=== PATIENT | female | born 1985 | race Caucasian/White ===

== ENCOUNTER 2016-10-19 01:12 | Emergency (ER) | payer OTHER ==
[~2016-10-19] VITALS: Ht 160 cm; Wt 131.8 kg
[2016-10-19 01:14] VITALS: BP 155/95; PULSE 94; RESP 18; O2SAT 100
--- NOTE | 2016-10-19 01:27 | ED.REPORT ---
HPI- Female Date of Service Oct 19, 2016 ED Provider: Connor Gonzalez MD Patient is a 31 year old female with a history of PCOS who is currently 9 1 /2 weeks presents to the ED with increasingly heavy vaginal bleeding and abdominal cramping since 7am yesterday morning. The patient reports having light spotting throughout her , with her current amount of bleeding being abnormal for her. She has consulted her [employer] about her spotting. The patient states that she normally has heavy periods, but her current amount of bleeding is heavier than what she would experience with a period. She reports large clots, about the size of a vaughn tomato. She reports associated nausea and decreased PO intake. The patient had a normal ultrasound 2 weeks ago. The patient is from [place] and is down in the area visiting for [place]. Nursing Notes Stated Complaint: - BLEEDING Chief Complaint: Female Abdominal Pain Nursing Notes Reviewed: Yes Allergies: Coded Allergies: No Known Allergies (Unverified , 10/19/16) Scheduled PRN Ibuprofen (Ibuprofen) 600 Mg Tablet 600 MG PO QID PRN PRN For Pain General Time Seen by MD: 01:27 Chief Complaint Vaginal bleeding... (Moderate) Hx Obtained From: Patient Arrived By: Walk-in Sudden in Onset?: No Onset Occurred: 17 - 20 hours ago Symptom Duration: Since onset Location: : Abdomen lower Quality: Cramping Severity: Current: Moderate Severity: Maximum: Moderate Recent Healthcare: No recent doctor visit, No recent hospitalization Similar Sx Previous: No Past Medical History Past Medical History PCOS Past Surgical History none reported Smoking History Unknown if Ever Smoker Social History lives in [place] Other Social History: Good social support, From out of town Ambulatory Status Independent Review of Systems GI: Reports: Abdominal pain, Nausea, Denies: Vomiting Female: Reports: Pelvic pain, , Vaginal bleeding - abnl Complete sys rev & neg: except as marked. Physical Exam Initial Vital Signs Vital Signs (First) Date Time Temp Pulse Resp B/P Pulse Ox O2 Delivery O2 Flow Rate FiO2 10/19/16 01:14 36.7 94 18 155/95 100 Room Air Initial VS: Reviewed Head / Eyes: Atraumatic, Normocephalic, PERRL ENT: Conjunctiva normal, No scleral icterus Neck: Supple, Full range of motion Extremities: Vascular intact, Neuro intact Skin: Warm, Dry, No cyanosis Neurologic: Alert, Oriented, Nonfocal Psychiatric: Mood/affect normal, Behavior normal, Normal thought content Female Genitourinary: Exam deferred General/Constitutional: Awake, Alert, No acute distress Appearance / Presentation: Positive: Obese, morbidly changes consistent with PCOS Respiratory / Chest: No respiratory distress, No stridor Cardiovascular: Heart rate NL, Cap refill not delayed Abdomen: Soft Tenderness/Guarding/Rebound: Positive: Tender suprapubic : Uterus appears to have meterial present. No FHT present. Interpretation & Diagnostics US PELVIS TRANSABDOMINAL AND TRANSVAGINAL CONCLUSION: No viable IUP detected. Complex material in the endometrial canal which could represent retained products of conception and/or blood. Ectopic not excluded in the absence of documented intrauterine . Left ovary cyst. Radiologist: Mukund Germain MD 10/19/2016 - 4:17:39 AM PST Lab Results Interpretation Result Diagram: 10/19/16 0145 Test 10/19/16 01:45 10/19/16 02:20 White Blood Count 13.8th/mm3 (3.8-10.1) Red Blood Count 4.55mil/mm3 (3.90-5.20) Hemoglobin 12.8g/dL (12.0-15.6) Hematocrit 38.5% (35.0-46.0) Mean Corpuscular Volume 84.6fL (81-100) Mean Corpuscular Hemoglobin 28.1pg (27.0-35.0) Mean Corpuscular Hemoglobin Concent 33.2% (32.0-37.0) Red Cell Distribution Width 13.3% (12.3-15.4) Platelet Count 301bil/L (150-400) Neutrophils (%) (Auto) 67.1% (40-74) Lymphocytes (%) (Auto) 25.2% (14-46) Monocytes (%) (Auto) 6.5% (4-12) Eosinophils (%) (Auto) 0.8% (0-5) Basophils (%) (Auto) 0.2% (0-3) HCG Beta Subunit [id number]/mL Hold Lynch Top Tube Received (Received) Urine Color Bloody (YELLOW) Urine Appearance Cloudy (CLEAR,HAZY) Urine pH 6.0 (5.0-8.0) Urine Specific [place] 1.030 (1.003-1.035) Urine Protein mg/dL (NEG,TRACE) Urine Glucose (UA) Negativemg/dL (NEGATIVE) Urine Ketones mg/dL (NEGATIVE) Urine Occult Blood Large (NEGATIVE) Urine Nitrite (NEGATIVE) Urine Bilirubin (NEGATIVE) Urine Urobilinogen Normalmg/dL (NORMAL) Urine Leukocyte Esterase (NEGATIVE) Urine RBC Packed/hpf (0-2) Urine WBC 0-5/hpf (0-5) Urine Epithelial Cells Few/hpf (NONE-MOD) Urine Crystals None seen (NONE SEEN) Urine Bacteria None/hpf (NONE-FEW) Urine Hyaline Casts None/lpf (NONE) Urine Granular Casts None seen (NONE SEEN) Urine Waxy Casts None seen (NONE SEEN) Urine Red Blood Cell Casts None seen (NONE SEEN) Urine White Blood Cell Casts None seen (NONE SEEN) Urine Mucus None seen (None Seen) Urine Trichomonas None seen (NONE SEEN) Urine Yeast None (NONE SEEN) Urinalysis Comment Color interference Re-Eval/Medical Decision Med Decision/Clinical Course 31-year-old female with polycystic ovary syndrome presents in the middle of a miscarriage with her first . This was completed while here. Ultrasound shows low segment fetus and she suddenly passes obvious tissue. This was sent for products of conception to the lab. She is discharged in stable condition. Rh was positive. Source of Hx: Old records Re-Evaluation/Progress #1: Time of Eval: 02:49 Patient Status: Condition improved Re-Evaluation/Progress Note: Rechecked the patient. Discussed lab results. Used portable ultrasound at bedside. Patient reports continued bleeding, which has slowed down. She also reports ongoing pain. Re-Evaluation/Progress #2: Time of Eval: 04:01 Patient Status: Condition worsened Re-Evaluation/Progress Note: Rechecked the patient, who has just passed the sac. This was in line with ultrasound. Patient understands and agrees with the plan to be discharged home. Discharge instructions and follow-up discussed. All questions were addressed. Return to the ED warnings given. Counseled Regarding: Diagnosis, Lab results, Need for follow-up, When/why to return to ED Discharge & Departure Impression: Primary Impression: Spontaneous miscarriage Disposition: Home Discharge Condition All VS Reviewed: Yes Condition: Stable Patient Instructions: Spontaneous Miscarriage (ED) Additional Instructions: I am sorry for your loss. This has very little predictive value for your future. You are just as likely to successfully become and remain as you ever were. Drink plenty of fluids and stay well-hydrated. Ibuprofen four times daily as needed for cramps Vicodin if needed additionally for pain. Return if any immediate issues. Follow-up with your doctor in the office. Referrals: OTHER,PHYSICIAN Brisa Attestation Portions of this note were transcribed by Zoe Mojica. I, Dr. Gonzalez personally performed the history, physical exam and medical decision-making; I reviewed and confirmed the accuracy of the information in the transcribed note. Signed by: Brisa Guzman, 10/19/2016 0431 copies to: OTHER,PHYSICIAN Connor Gonzalez MD Oct 19, 2016 01:27 Zoe Mojica Oct 19, 2016 01:36
[2016-10-19 01:59] LABS: BASOPHILS % (AUTO) 0.2 % (0-3); EOSINOPHILS % (AUTO) 0.8 % (0-5); MONOCYTES % (AUTO) 6.5 % (4-12); Mean Corpuscular Hemoglobin 28.1 pg (27.0-35.0); Mean Corpuscular Volume 84.6 fL (81-100); NEUTROPHILS % (AUTO) 67.1 % (40-74); Platelet Count 301 bil/L (150-400)
[2016-10-19] MEDS ORDERED: HYDROcodone-APAP 5-325 mg Tablet PO ONE (03:05)
[2016-10-19] MEDS ORDERED: 0.9% Sodium Chloride 1,000 ML IV SCH (03:05)
[2016-10-19 03:17] LABS: APPEARANCE,URINE CLOUDY (CLEAR,HAZY); COLOR,URINE BLOODY (YELLOW)
[2016-10-19 03:18] LABS: OCCULT BLOOD,URINE LARGE (NEGATIVE); UROBILINOGEN,URINE NORMAL (NORMAL)
[2016-10-19] MEDS ORDERED: IBUP-1827 PO (04:08)
[2016-10-19] MEDS ORDERED: Methylergonovine 0.2 mg/mL Inj IM ONE (04:10)
[2016-10-19] MEDS ORDERED: _HYDROcodone/APAP 5-325 mg Tablet PO PRN (04:20)
[2016-10-19 04:42] VITALS: BP 143/75; PULSE 99; RESP 16; O2SAT 98
--- NOTE | 2016-10-19 07:41 | DRSVH ---
PROCEDURE: US PELVIC SONOGRAM + TRANSVAGINAL SONOGRAM INDICATIONS: 9 weeks, heavy bleeding and pain TECHNIQUE: Real-time scanning was performed of the pelvic organs, with image documentation. Additional endovagi nal scanning was necessary due to incomplete visualization of the adnexal and endometrial structures by transabdominal scanning. COMPARISON: None. FINDINGS: Image quality limited by patient body habitus. Transabdominal scanning: Limited scanning through the kidneys shows no hydronephrosis. No pathologi c free abdominal or pelvic fluid. Endovaginal scanning: Uterus: Uterus is normal in size at 10.6 x 5.6 x 5.2 cm. The endometrium measures 1.2 mm in combine d thickness. Heterogeneous echogenic material likely representing clot noted in the lower uterine seg ment. Possible is identified. Pearcy-rump length of presumed intrauterine measur es 1.8 cm corresponding to ultrasound gestational age of 8 weeks 2 days. No heart tones identi fied in the presumed intrauterine . Ovaries: Right adnexa is not identified and cannot be evaluated. Left adnexa measures 3.2 x 3.0 x 2 .4 cm. The left adnexa is only identified by transabdominal imaging. There is a small, approximatel y 2.5 x 2.3 x 1.7 cm cyst in the left adnexa which may represent corpus luteal cyst, however lesion i s suboptimally visualized by transabdominal imaging. IMPRESSION: 1. Image quality limited by patient body habitus. 2. Heterogeneous, echogenic material in the lower uterine segment possibly representing hemorrhagic clot. 3. Possible intrauterine with ultrasound estimated age of 8 weeks 2 days. No heart tones identified. Findings suspicious for in progress. Please correlate with clinical data . 4. Right adnexa not visualized and cannot be evaluated. 5. Left adnexal cyst possibly representing corpus luteal cyst, although lesion is poorly visualized and cannot be definitively characterized. Dictated by: Jennifer Torres MD, PhD on 10/19/2016 at 7:39 Approved by: Jennifer Torres MD, PhD on 10/19/2016 at 7:39
--- NOTE | 2016-10-22 10:41 | PATH ---
SURGICAL PATHOLOGY Attending Physician:Connor Gonzalez CASE STATUS: Signed Out PATIENT NAME: PARAG FIGUEROA PID: [id number] : 1985 CASE NUMBER: [id number] DATE COLLECTED:10/19/2016 00:00 SPECIMEN: Products of conception CLINICAL HISTORY: A: SPONTANEOUS MISCARRIAGE FINAL DIAGNOSIS: 1.PRODUCTS OF CONCEPTION: IMMATURE CHORIONIC VILLI (PRODUCTS OF CONCEPTION). ICD10 CODE O02.1 GROSS DESCRIPTION: The specimen is received fresh in one container labeled with the patient's name, sublabeled "spontaneous miscarriage" and consists of a 4.0 x 2.0 x 1.4 CM dark red portion of tissue. Possible parts are observed. International Nurse sections are submitted in 2 cassettes. 10/20/2016 [facility] MICRO DESCRIPTION: See diagnosis. ICD-9 CODES: CPT CODES: 1: 75149 Electronically Signed Out Jc Amaral MD [facility] Pathology [facility] [address], [place] [address] Technical component performed at [facility], [facility] [address], [place], [address]
== END 2016-10-19 04:43 | disposition home or self-care (01) ==
LOC: SED 01:12
DX: O03.9 Complete or unspecified spontaneous abortion without complication (principal); Z3A.09 9 weeks gestation of pregnancy
CPT/HCPCS: 36415; 76830; 76856; 81001; 84702; 85025; 96361; 96372; 96374; 99285; J2210; J7030

== ENCOUNTER 2017-04-27 09:01 | Emergency (ER) | payer OTHER ==
[~2017-04-27] VITALS: Ht 162.6 cm; Wt 131.8 kg
[~2017-04-27 09:01] MED LIST: IBUP-1827 PO
[2017-04-27 09:11] VITALS: BP 127/83; PULSE 96; RESP 16; O2SAT 97
--- NOTE | 2017-04-27 09:16 | ED.REPORT ---
HPI-Extremity Problem Lower Date of Service Apr 27, 2017 ED Provider: Dariela Faria MD Pt is an otherwise healthy 31 year old female who presents to the ED complaining of left knee pain onset 1 hour ago. She c/o associated nausea. She denies any other symptoms. The pt was stepping over a hose at a gas station when she tripped and fell onto the concrete, hitting her left knee. She has not taking any medication prior to arrival. Pt reports that she has previously broken her right patella by falling on it. Nursing Notes Stated Complaint: LEFT KNEE INJURY Chief Complaint: Extremity Trauma Nursing Notes Reviewed: Yes Allergies: Coded Allergies: No Known Allergies (Unverified , 10/19/16) Scheduled PRN Ibuprofen (Ibuprofen) 600 Mg Tablet 600 MG PO QID PRN PRN For Pain General Time Seen by MD: 09:15 Chief Complaint Knee injury left Hx Obtained From: Patient Arrived By: Walk-in Onset Occurred: 1 - 4 hours ago Symptom Duration: Since onset Location: : Knee left Quality: Painful Severity: Current: Moderate Severity: Maximum: Moderate Recent Healthcare: No recent doctor visit, No recent hospitalization Similar Sx Previous: Yes Past Medical History Past Medical History PCOS Past Surgical History Broken right patella Right hand cyst removal Reports: Tonsillectomy Smoking History Unknown if Ever Smoker Social History lives in [place] Alcohol Use: "Social" Drug Use: Denies drug use Other Social History: Good social support, From out of town Ambulatory Status Independent Review of Systems Musculoskeletal: Reports: Extremity pain Complete sys rev & neg: except as marked. Respiratory: Denies: Non-productive cough, Shortness of breath GI: Reports: Nausea, Denies: Vomiting Physical Exam Initial Vital Signs Vital Signs (First) Date Time Temp Pulse Resp B/P Pulse Ox O2 Delivery O2 Flow Rate FiO2 04/27/17 09:11 36.7 96 16 127/83 97 Room Air Initial VS: Reviewed Head / Eyes: Atraumatic, Normocephalic Neck: Supple, Full range of motion Respiratory: Breath sounds normal, Clear to auscultation, No respiratory distress Cardiovascular: Regular rate & rhythm, Heart sounds normal, Intact distal pulses Upper Extremities: Vascular intact, Neuro intact Skin: Warm, Dry, No cyanosis Neurologic: Alert, Oriented, Nonfocal Psychiatric: Mood/affect normal, Behavior normal Lower Extremity / Pelvis / MS: Neurologic intact, Vascular intact Contusion and abrasion to the left patella with effusion developing superiorly. Tenderness to patellar insertion tendons superiorly and inferiorly. Ankle / Foot: Neurologic intact, Vascular intact Interpretation & Diagnostics X-Ray Interpretation Xray Interpretation: IMPRESSION: 1. No joint effusion or fracture. 2. Mild tricompartmental osteoarthritis. Dictated by: Ryan Ladd M.D. on 04/27/2017 at 10:12 X-Ray Ordered: Knee left Interpretation / Wet Read by: Interpret - Radiologist Re-Eval/Medical Decision Source of Hx: Old records Re-Evaluation/Progress : Time of Eval: 10:34 Re-Evaluation/Progress Note: Pt rechecked. Informed pt of plan for discharge. Pt understands and agrees with plan for discharge. F/U instructions and RTER warnings given. All questions addressed. Counseled Regarding: Diagnosis, Need for follow-up, When/why to return to ED Discharge & Departure Impression: Primary Impression: Contusion of right knee Encounter type: initial encounter Qualified Code: S80.01XA - Contusion of right knee, initial encounter Ruled Out: Patellar fracture Disposition: Home Discharge Condition All VS Reviewed: Yes Condition: Stable Additional Instructions: You didn't break your patella! You are going to be sore and swollen for the next few days. Use ice and ibuprofen as needed. I hope you heal quickly! Referrals: [facility] Scrib[facility] Attestation Portions of this note were transcribed by Josephine Ko. I, Dr. Faria personally performed the history, physical exam and medical decision-making; I reviewed and confirmed the accuracy of the information in the transcribed note. Signed by: Brisa Baez, 04/27/17 and 10:40. copies to: [facility] Dariela Faria MD Apr 27, 2017 09:16 Josephine Herr Apr 27, 2017 09:35
--- NOTE | 2017-04-27 10:17 | DRSVH ---
PROCEDURE: X-RAY LEFT KNEE, THREE VIEWS ([id number]) INDICATIONS: trauma ? patella fx TECHNIQUE: 3 views of the knee were acquired. COMPARISON: None. FINDINGS: Bones: No fractures or dislocations. No suspicious bony lesions. The patella appears intact. [place] la shows small posterior degenerative marginal bone spurs and a traction spur at the quadriceps inser tion. There also marginal bone spurs of the medial and lateral compartments. Soft tissues: No joint effusion. No prepatellar bursal effusion. No suspicious soft tissue calcifica tions. IMPRESSION: 1. No joint effusion or fracture. 2. Mild tricompartmental osteoarthritis. Dictated by: Ryan Ladd M.D. on 04/27/2017 at 10:12 Approved by: Ryan Ladd M.D. on 04/27/2017 at 10:14
[2017-04-27 10:57] VITALS: BP 121/85; PULSE 89; O2SAT 97
== END 2017-04-27 10:53 | disposition home or self-care (01) ==
LOC: SED 09:01
DX: S80.01XA Contusion of right knee, initial encounter (principal); W01.198A Fall on same level from slipping, tripping and stumbling with subsequent striking against other object, initial encounter; Y93.01 Activity, walking, marching and hiking; Y92.524 Gas station as the place of occurrence of the external cause; Y99.9 Unspecified external cause status